=== PATIENT | female | born 1925 | race Caucasian/White ===

== ENCOUNTER 2016-10-04 10:04 | Emergency (ER) | payer OTHER ==
[2016-10-04 10:26] VITALS: RESP 18; TEMP 97.9
[2016-10-04] MEDS ORDERED: LET GEL TOPICAL 1 EA SYR TP ONE (10:39)
[2016-10-04] MEDS ORDERED: TETANUS, DIPHTHERIA TOX (7YR+) 0.5 ML INJ IM ONE (10:58)
[2016-10-04 11:20] LABS: % IMMATURE GRANULYOCYTES 0.7 % (0.0-1.1); ABSOLUTE IMMATURE GRANULOCYTES 0.05 10^3/uL (0.00-0.10); ADD DIFF? NO; ADD MORPH? NO; ADD SCAN? NO; ATYPICAL LYMPHOCYTE FLAG 10 (0-99); FRAGMENT RBC FLAG 0 (0-99); HEMATOCRIT 42.2 % (38.0-47.0); LEFT SHIFT FLG 0 (0-99); LIPEMIA HEMOLYSIS FLAG 80 (0-99); MEAN CELL HEMOGLOBIN 31.1 pg (27.9-34.1); MEAN CELL HEMOGLOBIN CONCENTR. 33.2 g/dL (32.4-36.7); MEAN CELL VOLUME 93.8 fL (81.5-99.8); MEAN PLATELET VOLUME 10.3 fL (8.7-11.7); PLATELET CLUMPS FLAG 0 (0-99); PLATELET COUNT 257 10^3/uL (150-400); RED CELL DISTRIBUTION WIDTH 13.8 % (11.5-15.2)
[2016-10-04 11:34] LABS: INR 2.88 (0.83-1.16); PROTIME(PATIENT) 30.1 SEC (12.0-15.0)
--- NOTE | 2016-10-04 11:37 | EDPHY ---
H & P Time Seen by Provider: 10/04/16 10:28 HPI/ROS: This patient had a mechanical fall today witnessed by her daughter who was with her at that time. She suffered head injury, left hand injury, right leg injury and left shoulder injury from the fall. Her daughter explains that the patient inadvertently stepped over the curb causing her to fall to the left striking her head on the concrete. She sustained a laceration to the left hand into the left forehead and abrasion to the left cheek and left shoulder. She states that she has localized pain at the site of the impact to the forehead but was not dazed and had no LOC. This is confirmed by her daughter. The patient complains of right leg pain of moderate intensity worse with walking since the fall, left hand pain of moderate intensity to the dorsum of her hand into the 3rd finger and left shoulder pain of moderate intensity at the area of the humeral head. Her daughter gave her 2 Tylenol prior to arrival with partial improvement in the pain. She is brought in by private vehicle by her daughter. ROS: Constitutional: Patient felt well prior to the fall HEENT: She denies any dental injury or nose injury from the fall. No vision changes. No ear or hearing changes. Musculoskeletal: She has mild left lateral neck pain but no other neck or back pain. Extremity injuries as per HPI. Neuro: She denies any acute confusion over her baseline dementia. Her daughter confirms this. No focal numbness tingling weakness. Pulmonary: No chest wall pain, dyspnea or pleuritic pain Cardiovascular: No heart palpitations or lightheadedness. No pallor to injured extremities. GI: No abdominal pain 10 point ROS is otherwise negative. Past Medical/Surgical History: Atrial fibrillation on Coumadin with most recent INR 4.9 on September 29 Social History: She lives in a memory care unit in [place] Smoking Status: Never smoked Physical Exam: Physical exam: Vital signs are normal General: Patient is in no acute distress. HEENT: Patient has a 3 cm left forehead laceration and a left cheek abrasion over the zygoma with mild tenderness to the underlying zygoma but no crepitance. She has mild to moderate tenderness at the forehead underlying the laceration. Nose atraumatic. Ears: Clear bilaterally with no hemotympanum. Oropharynx: No dental trauma or malocclusion. No intraoral lacerations. Eyes: Pupils are equal and reactive to light. Extraocular motions are intact. Optic fundi: Clear with no papilledema or hemorrhage. Neck: Trachea is midline with no stridor. The patient has no midline neck tenderness and retains a full range of motion without increase in pain. She does have mild left lateral neck muscle tenderness Lungs: Clear to auscultation bilaterally. No chest wall tenderness. Cardiac: Regular rate and rhythm no murmur gallop or rub. 2+ extremity pulses are intact throughout all injured extremities with brisk capillary refill intact throughout. Abdomen: Soft nontender no organomegaly Back: Nontender Left shoulder: Patient has mild ecchymosis swelling and tenderness at the area of the left humeral head. She has limited range of motion due to pain Right leg: Patient has tibial tenderness more than lateral tenderness to the leg with mild swelling throughout. No posterior calf tenderness. No ankle or foot swelling or tenderness on that side. Left hand: Patient has tenderness to the left 3rd finger PIP more than PIP joint region with no gross deformity or finger malrotation. She has tenderness over lying the 3rd metacarpal in addition without significant swelling. There are 2 lacerations over the dorsum of the hand wound is 2 cm in length was 3 cm in length the extensor tendon of the 3rd fingers exposed but does not appear to be lacerated. There is minimal bleeding with no foreign bodies and direct examination. Other Extremities: Atraumatic Neuro: GCS of 15. Cranial nerves II through XII intact. No focal sensory or motor deficits are appreciated. Initial differential diagnosis: Closed head injury, cerebral contusion or intracranial bleed, left shoulder fracture versus contusion, left hand contusion versus fracture, right leg contusion versus fracture, multiple lacerations/abrasions Constitutional: Initial Vital Signs Temperature (C) 36.6 C 10/04/16 10:22 Heart Rate 60 10/04/16 10:22 Respiratory Rate 18 10/04/16 10:22 Blood Pressure 114/67 10/04/16 10:22 O2 Sat (%) 96 10/04/16 10:22 O2 Delivery Mode Room Air Allergies/Adverse Reactions: No Known Allergies Allergy (Unverified 10/04/16 10:20) Home Medications: Medication Instructions Recorded Amiodarone HCl 10/04/16 Coumadin 10/04/16 Donepezil HCl 07/31/17 MDM/Departure - [facility] Diagnostics: Tib-fib x-ray: Negative for fracture by my interpretation Shoulder x-ray: Osteopenia DJD with no acute fracture by my interpretation Hand x-ray: Read officially by the radiologist also reviewed by myself-2 small fractures the 3rd and 4th finger-PIP joints-proximal phalanx Imaging Results: CT head: 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 No cerebral contusion, intracranial bleed or fracture per radiologist - Dr. Gooden. I also reviewed this CT myself Procedures: Laceration 1.: The wound is 3 cm-left forehead. The wound was copiously irrigated with saline. The wound was explored for foreign bodies and none were found. The wound was prepped and draped in the normal sterile fashion. The wound was anesthetized using let solution followed by 50 50 mix of 0.5% Marcaine and 1% plain lidocaine-2 mL with good effect The edges were reapproximated using 5 0 Ethilon-7 running sutures with good hemostasis and cosmesis. The patient tolerated the procedure well. There were no complications Laceration 2.: The wound is located proximally over the dorsum of the hand with the tendon sheath to the 3rd digit evident but not lacerated-3 cm in length. The wound was copiously irrigated with saline. The wound was explored for foreign bodies and none were found. The wound was prepped and draped in the normal sterile fashion. The wound was anesthetized using let solution followed by 50 50 mix of 0.5% Marcaine and 1% plain lidocaine-2 mL with good effect. The edges were reapproximated using 4 0 Ethilon-10 running sutures with good hemostasis and cosmesis. The patient tolerated the procedure well without complications. Laceration 3.: The wound is distally over the dorsum of the hand-irregular border 2 cm in size with no foreign bodies and minimal bleeding. No tendon injury. The wound was copiously irrigated with saline. The wound was explored for foreign bodies and none were found. The wound was prepped and draped in the normal sterile fashion. The wound was anesthetized using let solution followed by a 50 50 mix of 0.5% Marcaine and 1% lidocaine-2 mL with good effect. The edges were reapproximated using 3 interrupted sutures and 6 running sutures with good hemostasis and cosmesis. The patient tolerated the procedure well. There were no complications. Medications Given: Discontinued Medications Tetanus/Diphtheria Toxoids Adsorbed (Tetanus-Diphtheria Tenivac) 0.5 ml IM .ONCE ONE Stop: 10/04/16 10:59 Last Admin: 10/04/16 11:07 Dose: 0.5 ml Tetracaine/Epinephrine/Lidocaine (Let Gel Topical) 1 ea TP EDNOW ONE Stop: 10/04/16 10:40 Last Admin: 10/04/16 10:47 Dose: 1 ea ED Course/Re-evaluation: Let solution applied to lacerations. I counseled the patient and her daughter regarding the need for imaging. Given recent INR 4.9 on 09/29/16 with closed head injury in this patient I think she warrants CT imaging to rule out intracranial bleed or cerebral contusion as sequelae of her trauma Review of her labs reveals improvement in her INR after apparently an adjustment was made to her dosing to an INR today of 2.9. Her CBC is normal The patient declined any further analgesics while here and her mentation remained intact throughout her stay. I counseled her regarding her finger fractures and our nurse place her in Orthoglass volar short-arm splint with my supervision. Patient is neurovascularly intact post splint application. She will follow up with Dr. Ames-hand specialist that she has seen in the past for wrist fracture Discussion: Patient with mechanical fall, closed head injury without intracranial bleed or other complicating factors. She slipped finger fractures in 3 lacerations that were repaired. I counseled her regarding her injuries. She is safe for discharge home after observation here maintaining normal mental status no further complaints throughout her stay. - Depart Disposition: Home, Routine, Self-Care Clinical Impression: Minor closed head injury Fingers fractured Qualifiers: Encounter type: initial encounter Finger: unspecified finger Fracture type: closed Phalanx: proximal Fracture alignment: nondisplaced Qualified Code(s): S62.649A - Nondisplaced fracture of proximal phalanx of unspecified finger, initial encounter for closed fracture Facial laceration Qualifiers: Encounter type: initial encounter Qualified Code(s): S01.81XA - Laceration without foreign body of other part of head, initial encounter Hand laceration Qualifiers: Encounter type: initial encounter Foreign body presence: without foreign body Laterality: left Qualified Code(s): S61.412A - Laceration without foreign body of left hand, initial encounter Shoulder contusion Qualifiers: Encounter type: initial encounter Laterality: left Qualified Code(s): S40.012A - Contusion of left shoulder, initial encounter Contusion of leg Qualifiers: Encounter type: initial encounter Laterality: right Qualified Code(s): S80.11XA - Contusion of right lower leg, initial encounter Condition: Good Instructions: Care For Your Stitches (ED), Finger Fracture (ED), Head Injury ( ED) Additional Instructions: Diagnoses: 1. Minor closed head injury 2. Finger fractures 3. Facial laceration 4. Hand laceration 5. Shoulder contusion 6. Leg contusion Plan: Tylenol for discomfort/pain as needed Keep the lacerations clean and dry for the next 2 days, then remove bandages in clean daily with warm soap soapy water Return for suture removal to the face in 5-7 days, suture removal from the hand in 10-12 days Keep the hand splint/finger splint on at all times-clean and dry Call Dr. ames-resident program specialist to arrange follow-up appointment for further evaluation in 3-5 days Return the emergency department for unbearable headache, confusion, vomiting or other concerns. Referrals: ZAIN GLORIA MD [Other] - As per Instructions Carlos Ames MD [Medical Doctor] - As per Instructions
[2016-10-04 16:52] VITALS: BP 168/88; PULSE 63; O2SAT 95
== END 2016-10-04 13:49 | disposition home or self-care (01) ==
LOC: CED 10:04
PROC: 0HQ1XZZ Repair Face Skin, External Approach (ICD-10-PCS; principal; 2016-10-04)
PROC: 0HQGXZZ Repair Left Hand Skin, External Approach (ICD-10-PCS; principal; 2016-10-04)
DX: S62.643A Nondisplaced fracture of proximal phalanx of left middle finger, initial encounter for closed fracture (principal); S62.645A Nondisplaced fracture of proximal phalanx of left ring finger, initial encounter for closed fracture; S01.81XA Laceration without foreign body of other part of head, initial encounter; S61.412A Laceration without foreign body of left hand, initial encounter; S09.90XA Unspecified injury of head, initial encounter; S40.012A Contusion of left shoulder, initial encounter; S80.11XA Contusion of right lower leg, initial encounter; Z23 Encounter for immunization; Z79.01 Long term (current) use of anticoagulants; W18.39XA Other fall on same level, initial encounter; Y93.01 Activity, walking, marching and hiking
CPT/HCPCS: 70450-PO; 73030-PO; 73130-PO; 73590-PO; 85025-PO; 85610-PO

== ENCOUNTER 2016-11-25 19:48 | Emergency (ER) | payer OTHER ==
[2016-11-25 20:03] VITALS: RESP 18; O2SAT 93
[2016-11-25 20:37] LABS: % IMMATURE GRANULYOCYTES 0.2 % (0.0-1.1); ABSOLUTE IMMATURE GRANULOCYTES 0.01 10^3/uL (0.00-0.10); ADD DIFF? NO; ADD MORPH? NO; ADD SCAN? NO; ATYPICAL LYMPHOCYTE FLAG 10 (0-99); FRAGMENT RBC FLAG 0 (0-99); HEMATOCRIT 39.7 % (38.0-47.0); HEMOGLOBIN 13.2 g/dL (12.6-16.3); LEFT SHIFT FLG 0 (0-99); LIPEMIA HEMOLYSIS FLAG 80 (0-99); MEAN CELL HEMOGLOBIN 31.7 pg (27.9-34.1); MEAN CELL HEMOGLOBIN CONCENTR. 33.2 g/dL (32.4-36.7); MEAN CELL VOLUME 95.2 fL (81.5-99.8); MEAN PLATELET VOLUME 10.3 fL (8.7-11.7); PLATELET CLUMPS FLAG 10 (0-99); PLATELET COUNT 224 10^3/uL (150-400); RED BLOOD CELL COUNT 4.17 10^6/uL (4.18-5.33); RED CELL DISTRIBUTION WIDTH 13.6 % (11.5-15.2)
[2016-11-25 20:46] LABS: INR 2.94 (0.83-1.16); PROTIME(PATIENT) 30.6 SEC (12.0-15.0)
--- NOTE | 2016-11-25 20:46 | EDPHY ---
H & P Stated Complaint: Mechanical fall, L upper arm laceration. Time Seen by Provider: 11/25/16 19:59 HPI/ROS: CHIEF COMPLAINT: Laceration History by patient's daughter HISTORY OF PRESENT ILLNESS: 89-year-old woman with a history of atrial fibrillation on Coumadin and dementia brought in from her halfway facility after a fall where she scraped her arm against the wall sustaining a large skin tear to the upper arm. Steri-Strips were placed by the intermediate facility and patient was sent in for evaluation. The patient has had several frequent falls. She cannot provide further details of the fall. She has no complaints currently. REVIEW OF SYSTEMS: As in HPI, but limited the patient's dementia - Personal History Current Tetanus/Diphtheria Vaccine: Yes Current Tetanus Diphtheria and Acellular Pertussis (TDAP): Yes Tetanus Vaccine Date: 2016 - Medical/Surgical History Hx Asthma: No Hx Chronic Respiratory Disease: No Hx Diabetes: No Hx Cardiac Disease: Yes Hx Renal Disease: No Hx Cirrhosis: No Hx Alcoholism: No Hx HIV/AIDS: No Hx Splenectomy or Spleen Trauma: No Other PMH: A-FIB, PACE [employer]ER- on WARFRIN, Dementia, TIA, fracture ankle and wrist. - Social History Smoking Status: Never smoked - Physical Exam Exam: General Appearance: Alert and no distress. Eyes: Pupils equal and round no injection. Musculoskeletal: Neck is supple and nontender. Extremities: Left upper arm 8 cm skin tear with associated large clot and Steri -Strips in place. Radial pulses 2+ and intact, distal station is intact, full range of motion of left shoulder and elbow Skin: No rashes or lesions except as described above. Constitutional: Initial Vital Signs Temperature (C) 36.9 C 11/25/16 19:59 Heart Rate 60 11/25/16 19:59 Respiratory Rate 18 11/25/16 19:59 Blood Pressure 158/95 H 11/25/16 19:59 O2 Sat (%) 93 11/25/16 19:59 O2 Delivery Mode Room Air Allergies/Adverse Reactions: codeine Allergy (Intermediate, Verified 11/25/16 20:03) Vomiting Home Medications: Medication Instructions Recorded Amiodarone HCl 10/04/16 Coumadin 10/04/16 Donepezil HCl 10/04/16 Medical Decision Making ED Course/Re-evaluation: 89-year-old woman with dementia on AFib and Coumadin presents with 10 cm skin tear of left upper arm with underlying hematoma. There is no evidence of neurovascular compromise. A compression dressing was placed along with Surgicel and bleeding was ultimately controlled. Hemoglobin was within normal limits and her INR was slightly elevated at 2.95. There was a significant skin defect and the surrounding injured skin was very thin and fragile an ecchymotic and unlikely to hold sutures. We therefore placed additional Surgicel over the wound and covered it with a Mepilex dressing to have a heal by secondary intention. I discussed wound care and signs and symptoms of infection with the patient's daughter including but not limited to fever, increased pain or redness spreading out from underneath the dressing. Her recommend close follow- up by her care providers at her memory care unit. Patient's daughter is plan to discuss stopping the for an with the patient's credit operations specialist at their appointment next week. - Data Points Laboratory Results: Laboratory Results 11/25/16 20:30 11/25/16 11/25/16 20:30 20:30 WBC 6.32 10^3/uL 10^3/uL (3.80-9.50) RBC 4.17 10^6/uL L 10^6/uL (4.18-5.33) Hgb 13.2 g/dL g/dL (12.6-16.3) Hct 39.7 % % (38.0-47.0) MCV 95.2 fL fL (81.5-99.8) MCH 31.7 pg pg (27.9-34.1) MCHC 33.2 g/dL g/dL (32.4-36.7) RDW 13.6 % % (11.5-15.2) Plt Count 224 10^3/uL 10^3/uL (150-400) MPV 10.3 fL fL (8.7-11.7) Neut % (Auto) 65.5 % % (39.3-74.2) Lymph % (Auto) 21.5 % % (15.0-45.0) [place] % (Auto) 10.9 % % (4.5-13.0) Eos % (Auto) 1.6 % % (0.6-7.6) Baso % (Auto) 0.3 % % (0.3-1.7) Nucleat RBC Rel Count 0.0 % % (0.0-0.2) Absolute Neuts (auto) 4.14 10^3/uL 10^3/uL (1.70-6.50) Absolute Lymphs (auto) 1.36 10^3/uL 10^3/uL (1.00-3.00) Absolute Monos (auto) 0.69 10^3/uL 10^3/uL (0.30-0.80) Absolute Eos (auto) 0.10 10^3/uL 10^3/uL (0.03-0.40) Absolute Basos (auto) 0.02 10^3/uL 10^3/uL (0.02-0.10) Absolute Nucleated RBC 0.00 10^3/uL 10^3/uL (0-0.01) Immature Gran % 0.2 % % (0.0-1.1) Immature Gran # 0.01 10^3/uL 10^3/uL (0.00-0.10) PT 30.6 SEC H SEC (12.0-15.0) INR 2.94 H (0.83-1.16) Departure - Departure Disposition: Home, Routine, Self-Care Clinical Impression: Skin tear of left upper extremity Condition: Good Instructions: Skin Tear (ED) Additional Instructions: You were seen by Dr. Suzette Hanley today. Please ice 10-20 minutes every few hours to the wound the for pain and swelling. You may take Tylenol 1000 mg every 6 hours as needed for pain. Change the mepilex dressing in 3 days or sooner if drainage soaks through. Keep wound wrapped over night and then check wound in the morning. Watch for signs and symptoms of infection including but not limited to fever, increased pain, purulent drainage or spreading redness. Return for any worsening or new concerns. Referrals: Margie Palacios MD [Primary Care Provider] - As per Instructions
[2016-11-25] MEDS ORDERED: ACETAMINOPHEN 500 MG TAB PO ONE (21:28)
[2016-11-25 21:54] VITALS: BP 146/80; PULSE 63; TEMP 98.2
== END 2016-11-25 21:54 | disposition home or self-care (01) ==
LOC: CED 19:48
DX: S41.112A Laceration without foreign body of left upper arm, initial encounter (principal); Z79.01 Long term (current) use of anticoagulants; Z95.0 Presence of cardiac pacemaker; W18.39XA Other fall on same level, initial encounter; Y92.129 Unspecified place in nursing home as the place of occurrence of the external cause
CPT/HCPCS: 85025-PO; 85610-PO

== ENCOUNTER → 2017-03-14 | Outpatient (CLI) | payer OTHER | LOC: BHFA 11:00 | PROVIDERS: ATTEND Internal Medicine Interventional Cardiology | DX: I48.91 Unspecified atrial fibrillation (principal); Z79.899 Other long term (current) drug therapy ==